=== PATIENT | female | born 1955 | race African-American/Black ===

== ENCOUNTER 2020-10-22 17:29 | Observation (INO) ==
[2020-10-22 17:58] LABS: Basophils # 0.1 10*3/uL (0.0-0.2); Basophils % 0.7 % (0.0-0.8); Eosinophils # 0.3 10*3/uL (0.0-0.87); Eosinophils % 4.1 % (0.00-10.9); Hemoglobin 13.3 GM/DL (12.0-16.0); Immature Granulocytes % 0.3 %; Immature Granulocytes Absolute 0.02 #; Lymphocytes # 1.9 10*3/uL (1.4-4.0); Lymphocytes % 27.6 % (21.3-54.2); Mean Corpuscular HGB Conc 33.3 GM/DL (32-36); Mean Corpuscular Volume 97.8 FL (87-102); Mean Platelet Volume 9.3 FL (9.6-12.0); Monocytes % 8.8 % (1.7-12.7); Neutrophils % 58.5 % (38.7-73.9); Platelet Count 186 T/CUMM (130-400); Red Blood Count 4.09 MC/CUMM (3.8-5.5); Red Cell Distribution Width 15.8 % (9.3-17.3); White Blood Count 6.8 T/CUMM (4-12)
[2020-10-22 18:09] LABS: INR 3.2; PT Patient Result 32.9 SECS (10.5-12.0); Partial Thromboplastin Time 43.9 SECS (23.9-33.8)
[2020-10-22 18:26] LABS: Bilirubin,Total 0.6 MG/DL (0.20-1.00); Calcium 9.4 MG/DL (8.5-10.1); Osmolality,Calculated 276.4 MOS/KG (273-304); Potassium 3.8 MMOL/L (3.5-5.1); Total Protein 8.7 G/DL (6.4-8.2)
[2020-10-23] MEDS ORDERED: GLUCAGON 1 MG VIAL IM PRN (00:45)
[2020-10-23] MEDS ORDERED: ACETAMINOPHEN 325 MG TABLET PO PRN (00:45)
[2020-10-23] MEDS ORDERED: DEXTROSE 50% 25 GM/50 ML VIAL IV PRN (00:45)
[2020-10-23] MEDS ORDERED: ONDANSETRON 4 MG/2 ML VIAL IV PRN (00:45)
[2020-10-23] MEDS ORDERED: traZODone 50 MG TABLET PO PRN (00:45)
[2020-10-23] MEDS ORDERED: SIMETHICONE CHEW 125 MG TABLET PO PRN (00:45)
[2020-10-23 01:35] LABS: Basophils % 0.6 % (0.0-0.8); Eosinophils # 0.2 10*3/uL (0.0-0.87); Eosinophils % 4.5 % (0.00-10.9); Hematocrit 35.4 VOL% (35.7-47.0); Hemoglobin 11.8 GM/DL (12.0-16.0); Immature Granulocytes % 0.2 %; Immature Granulocytes Absolute 0.01 #; Lymphocytes # 1.3 10*3/uL (1.4-4.0); Lymphocytes % 26.1 % (21.3-54.2); Mean Corpuscular HGB Conc 33.3 GM/DL (32-36); Mean Corpuscular Volume 98.1 FL (87-102); Mean Platelet Volume 9.6 FL (9.6-12.0); Monocytes % 9.2 % (1.7-12.7); Neutrophils % 59.4 % (38.7-73.9); Platelet Count 166 T/CUMM (130-400); Red Blood Count 3.61 MC/CUMM (3.8-5.5); Red Cell Distribution Width 15.6 % (9.3-17.3); White Blood Count 5.1 T/CUMM (4-12)
[2020-10-23 01:58] LABS: Osmolality,Calculated 278.3 MOS/KG (273-304); Potassium 3.7 MMOL/L (3.5-5.1); Risk Ratio 2.68; Thyroid Stimulating Hormone 1.03 uIU/ml (0.358-3.74); VLDL Cholesterol 11.8 MG/DL
[2020-10-23] MEDS ORDERED: MAGNESIUM SULF RIDER 2 GM/50 ML PREMIX IV ONE (07:24)
[2020-10-23] MEDS ORDERED: ASCORBIC ACID 500 MG TABLET PO SCH (09:00)
[2020-10-23] MEDS ORDERED: PANTOPRAZOLE 40 MG TABLET PO SCH (09:00)
[2020-10-23] MEDS: CHOLECALCIFEROL 1,000 UNIT TABLET PO SCH (09:39)
[2020-10-23] MEDS: carvediloL 25 MG TABLET PO SCH ×2 (09:39→16:53)
[2020-10-23] MEDS: methIMAzole 5 MG TABLET PO SCH (09:40)
[2020-10-23] MEDS: ASCORBIC ACID 500 MG TABLET PO SCH ×2 (09:44→21:11)
[2020-10-23] MEDS: PANTOPRAZOLE 40 MG TABLET PO SCH ×2 (09:44→21:10)
[2020-10-23] MEDS: MULTIVITAMIN (CENTRUM) TABLET PO SCH (09:45)
[2020-10-23] MEDS: LORATADINE 10 MG TABLET PO SCH (09:45)
[2020-10-23] MEDS: lisinopriL 5 MG TABLET PO SCH (09:45)
[2020-10-23] MEDS: DOCUSATE SODIUM 100 MG CAPSULE PO SCH ×2 (09:46→21:10)
[2020-10-23] MEDS: ZINC GLUCONATE 50 MG TABLET PO SCH (09:46)
[2020-10-23] MEDS: SPIRONOLACTONE 25 MG TABLET PO SCH (09:50)
[2020-10-23] MEDS ORDERED: WARFARIN 1 MG TABLET PO SCH (18:00)
[2020-10-23] MEDS ORDERED: WARFARIN 3 MG TABLET PO SCH (18:00)
[2020-10-23] MEDS ORDERED: SPIRONOLACTONE 25 MG TABLET PO SCH (21:00)
[2020-10-23] MEDS ORDERED: SIMVASTATIN 10 MG TABLET PO SCH (21:00)
[2020-10-24] MEDS: CHOLECALCIFEROL 1,000 UNIT TABLET PO SCH (08:43)
[2020-10-24] MEDS: MULTIVITAMIN (CENTRUM) TABLET PO SCH (08:43)
[2020-10-24] MEDS: SPIRONOLACTONE 25 MG TABLET PO SCH (08:44)
[2020-10-24] MEDS: LORATADINE 10 MG TABLET PO SCH (08:44)
[2020-10-24] MEDS: PANTOPRAZOLE 40 MG TABLET PO SCH (08:44)
[2020-10-24] MEDS: methIMAzole 5 MG TABLET PO SCH (08:44)
[2020-10-24] MEDS: ASCORBIC ACID 500 MG TABLET PO SCH (08:44)
[2020-10-24] MEDS: ZINC GLUCONATE 50 MG TABLET PO SCH (08:44)
[2020-10-24] MEDS: carvediloL 25 MG TABLET PO SCH (08:44)
[2020-10-24] MEDS: DOCUSATE SODIUM 100 MG CAPSULE PO SCH (08:44)
[2020-10-24] MEDS: lisinopriL 5 MG TABLET PO SCH (08:47)
[2020-10-24 16:52] VITALS: BP 117/73
== END 2020-10-24 16:56 | disposition home or self-care (01) ==
LOC: N.EDINP 17:29 → N.ED 17:29 → N.TELEN 22:55
PROVIDERS: ADMIT Internal Medicine; ATTEND Internal Medicine

== ENCOUNTER 2021-11-26 11:52 | Inpatient (IN) ==
[2021-11-26] MEDS ORDERED: ASPIRIN 325 MG TABLET PO STA (12:15)
[2021-11-26 12:35] LABS: Basophils % 0.3 % (0.0-0.8); Eosinophils # 0.3 10*3/uL (0.0-0.87); Eosinophils % 3.3 % (0.00-10.9); Hematocrit 44.1 VOL% (35.7-47.0); Hemoglobin 14.5 GM/DL (12.0-16.0); Immature Granulocytes % 0.6 %; Immature Granulocytes Absolute 0.06 #; Lymphocytes # 1.8 10*3/uL (1.4-4.0); Lymphocytes % 18.4 % (21.3-54.2); Mean Corpuscular HGB Conc 32.9 GM/DL (32-36); Mean Platelet Volume 9.6 FL (9.6-12.0); Monocytes # 0.7 10*3/uL (0.11-0.8); Monocytes % 7.2 % (1.7-12.7); Neutrophils % 70.2 % (38.7-73.9); Platelet Count 191 T/CUMM (130-400); Red Blood Count 4.28 MC/CUMM (3.8-5.5); Red Cell Distribution Width 14.7 % (9.3-17.3); White Blood Count 9.7 T/CUMM (4-12)
[2021-11-26 12:46] LABS: INR 2.8; PT Patient Result 29.2 SECS (10.1-12.1)
[2021-11-26 12:57] LABS: Albumin 3.7 G/DL (3.4-5.0); Bilirubin,Total 0.8 MG/DL (0.20-1.00); Calcium 9.3 MG/DL (8.5-10.1); Osmolality,Calculated 279.5 MOS/KG (273-304); Total Protein 7.6 G/DL (6.4-8.2)
[2021-11-26] MEDS ORDERED: DOCUSATE SODIUM 100 MG CAPSULE PO PRN (13:10)
[2021-11-26] MEDS ORDERED: diphenhydrAMINE CAP 25 MG CAPSULE PO PRN (13:10)
[2021-11-26] MEDS ORDERED: ACETAMINOPHEN 325 MG TABLET PO PRN (13:10)
[2021-11-26] MEDS ORDERED: ALUMINUM/MAGNES/SIMETH MAX STR 30 ML UDCUP PO PRN (13:10)
[2021-11-26] MEDS ORDERED: PROMETHAZINE 25 MG TABLET PO PRN (13:10)
[2021-11-26] MEDS ORDERED: ONDANSETRON 4 MG/2 ML VIAL IV PRN (13:10)
[2021-11-26] MEDS ORDERED: MORPHINE 2 MG/1 ML SYRINGE IV PRN (13:10)
[2021-11-26] MEDS ORDERED: guaiFENesin/DM ER 600-30 MG TABLET PO PRN (13:10)
[2021-11-26] MEDS ORDERED: ZALEPLON 5 MG CAPSULE PO PRN (13:10)
[2021-11-26] MEDS ORDERED: SODIUM CHLORIDE 0.9% 1,000 ML IV STA (13:16)
[2021-11-26] MEDS: SODIUM CHLORIDE 0.9% 1,000 ML IV SCH ×3 (14:06→23:45)
[2021-11-26] MEDS ORDERED: HEPARIN 5,000 UNIT/1 ML VIAL IV STA (14:20)
[2021-11-26] MEDS ORDERED: HEPARIN 5,000 UNIT/1 ML VIAL ONE (14:20)
[2021-11-26] MEDS ORDERED: NITROGLYCERIN DRIP 50 MG/250 ML BOTTLE IV ONE (14:22)
[2021-11-26] MEDS ORDERED: HEPARIN/NACL 0.9% 2 UNITS/ML 2,000 UNIT/1,000 ML BAG IV ONE (14:22)
[2021-11-26] MEDS ORDERED: VERAPAMIL 5 MG/2 ML VIAL ONE (14:22)
[2021-11-26] MEDS ORDERED: diphenhydrAMINE CAP 50 MG CAPSULE PO ONE (14:28)
[2021-11-26] MEDS ORDERED: POTASSIUM CHLORIDE RIDER 10 MEQ/100 ML PREMIX IV PRN (14:28)
[2021-11-26] MEDS ORDERED: MAGNESIUM SULF RIDER 2 GM/50 ML PREMIX IV PRN (14:28)
[2021-11-26] MEDS ORDERED: DIAZEPAM 5 MG TABLET PO ONE (14:28)
[2021-11-26] MEDS ORDERED: DOPamine 800 MG/250 ML PREMIX IV ONE (15:26)
[2021-11-26] MEDS: DOPamine 800 MG/250 ML PREMIX IV PRN (15:41)
[2021-11-26] MEDS ORDERED: ATROPINE 1 MG/10 ML SYRINGE ONE (16:42)
[2021-11-26] MEDS ORDERED: ATROPINE 1 MG/10 ML SYRINGE IV ONE (16:42)
[2021-11-26 17:04] VITALS: BP 80/67
[2021-11-26 18:03] LABS: CKMB % 6.38 %
[2021-11-26 18:06] LABS: High Sensitive Troponin I* 864.1 ng/L (0-54)
[2021-11-26 18:33] LABS: Arterial Bicarbonate iSTAT 23.1 MMOL/L (20-26); Arterial pH iSTAT 7.338 (7.35-7.45)
[2021-11-26] MEDS ORDERED: ATROPINE 1 MG/10 ML SYRINGE IV PRN (19:22)
[2021-11-26 19:32] LABS: CKMB % 9.8 %
[2021-11-26 19:35] LABS: High Sensitive Troponin I* 1964.2 ng/L (0-54)
[2021-11-26] MEDS: SIMVASTATIN 10 MG TABLET PO SCH (20:28)
[2021-11-26] MEDS ORDERED: WARFARIN 1 MG TABLET PO SCH (21:00)
[2021-11-26] MEDS ORDERED: WARFARIN 3 MG TABLET PO SCH (21:00)
[2021-11-26 22:12] LABS: Basophils % 0.2 % (0.0-0.8); Eosinophils % 0.1 % (0.00-10.9); Hematocrit 42.3 VOL% (35.7-47.0); Hemoglobin 13.7 GM/DL (12.0-16.0); Immature Granulocytes % 1.3 %; Immature Granulocytes Absolute 0.15 #; Lymphocytes # 1.7 10*3/uL (1.4-4.0); Lymphocytes % 14.3 % (21.3-54.2); Mean Corpuscular HGB Conc 32.4 GM/DL (32-36); Mean Corpuscular Volume 106.5 FL (87-102); Mean Platelet Volume 9.4 FL (9.6-12.0); Monocytes # 0.3 10*3/uL (0.11-0.8); Monocytes % 2.2 % (1.7-12.7); Neutrophils % 81.9 % (38.7-73.9); Platelet Count 173 T/CUMM (130-400); Red Blood Count 3.97 MC/CUMM (3.8-5.5); Red Cell Distribution Width 14.9 % (9.3-17.3); White Blood Count 11.7 T/CUMM (4-12)
[2021-11-26 22:36] LABS: Albumin 2.8 G/DL (3.4-5.0); Bilirubin,Total 0.6 MG/DL (0.20-1.00); Calcium 8.6 MG/DL (8.5-10.1); Osmolality,Calculated 289.3 MOS/KG (273-304); Potassium 2.9 MMOL/L (3.5-5.1); Total Protein 7.3 G/DL (6.4-8.2)
[2021-11-26] MEDS ORDERED: SODIUM CHLORIDE 0.9% 500 ML IV ONE (22:53)
[2021-11-26] MEDS ORDERED: POTASSIUM CHLORIDE 20 MEQ TABLET PO ONE (22:53)
[2021-11-26] MEDS: POTASSIUM CHLORIDE RIDER 10 MEQ/100 ML PREMIX IV SCH (23:16)
[2021-11-27] MEDS: POTASSIUM CHLORIDE RIDER 10 MEQ/100 ML PREMIX IV SCH (00:21)
[2021-11-27 04:11] LABS: Basophils % 0.2 % (0.0-0.8); Eosinophils % 0.1 % (0.00-10.9); Hematocrit 48.6 VOL% (35.7-47.0); Hemoglobin 15.7 GM/DL (12.0-16.0); Immature Granulocytes % 1.4 %; Immature Granulocytes Absolute 0.19 #; Lymphocytes # 1.2 10*3/uL (1.4-4.0); Lymphocytes % 8.6 % (21.3-54.2); Mean Corpuscular HGB Conc 32.3 GM/DL (32-36); Mean Corpuscular Volume 106.6 FL (87-102); Mean Platelet Volume 9.4 FL (9.6-12.0); Neutrophils % 82.7 % (38.7-73.9); Platelet Count 160 T/CUMM (130-400); Red Blood Count 4.56 MC/CUMM (3.8-5.5); Red Cell Distribution Width 15.1 % (9.3-17.3)
[2021-11-27 04:53] LABS: Alanine Aminotransferase 79 U/L (13-56); Albumin 3.1 G/DL (3.4-5.0); Alkaline Phosphatase 118 U/L (45-117); Aspartate Amino Transferase 181 U/L (0-37); Blood Urea Nitrogen 14 MG/DL (7-18); Carbon Dioxide 14 MMOL/L (21-32); Chloride 110 MMOL/L (98-107); Cholesterol 136 MG/DL (50-200); Glucose 138 MG/DL (74-106); HDL Cholesterol 54 MG/DL (40-60); Potassium 4.5 MMOL/L (3.5-5.1); Risk Ratio 2.52; Sodium 136 MMOL/L (136-145); Thyroid Stimulating Hormone 0.769 uIU/ml (0.358-3.74); Total Protein 7.9 G/DL (6.4-8.2); Triglycerides 86 MG/DL (2-150); VLDL Cholesterol 17.2 MG/DL
[2021-11-27] MEDS ORDERED: HEPARIN DRIP 25,000 UNITS/500 ML PREMIX IV SCH (07:30)
[2021-11-27] MEDS: DOPamine 800 MG/250 ML PREMIX IV PRN ×2 (08:00→22:36)
[2021-11-27 08:31] LABS: Bilirubin,Total 0.7 MG/DL (0.20-1.00); Calcium 8.7 MG/DL (8.5-10.1); Osmolality,Calculated 284.3 MOS/KG (273-304); Potassium 5.5 MMOL/L (3.5-5.1); Total Protein 7.3 G/DL (6.4-8.2)
[2021-11-27 08:39] LABS: Arterial Base Excess iSTAT -8 MMOL/L (-2.5-2.5); Arterial Bicarbonate iSTAT 17.1 MMOL/L (20-26); Arterial O2 Saturation iSTAT 94 % (95-100); Arterial PCO2 iSTAT 34 MM HG (35-48); Arterial PO2 iSTAT 76 MM HG (80-95); Arterial Total CO2 iSTAT 18 MMO/L (23-27); Arterial pH iSTAT 7.317 (7.35-7.45)
[2021-11-27] MEDS ORDERED: SODIUM CHLORIDE 0.9% 1,000 ML IV SCH (09:00)
[2021-11-27] MEDS: ASPIRIN EC 81 MG TABLET PO SCH (09:57)
[2021-11-27] MEDS: methIMAzole 5 MG TABLET PO SCH (09:57)
[2021-11-27] MEDS: CHOLECALCIFEROL 1,000 UNIT TABLET PO SCH (09:57)
[2021-11-27] MEDS: MULTIVITAMIN (CENTRUM) TABLET PO SCH (09:57)
[2021-11-27] MEDS: ASCORBIC ACID 500 MG TABLET PO SCH (09:57)
[2021-11-27] MEDS: CLOPIDOGREL 75 MG TABLET PO SCH (09:57)
[2021-11-27] MEDS: PANTOPRAZOLE 40 MG TABLET PO SCH (09:57)
[2021-11-27] MEDS: LORATADINE 10 MG TABLET PO SCH (09:57)
[2021-11-27] MEDS: ZINC GLUCONATE 50 MG TABLET PO SCH (09:57)
[2021-11-27] MEDS: SODIUM CHLORIDE 0.9% 1,000 ML IV SCH ×2 (09:58→13:32)
[2021-11-27 13:34] LABS: Albumin 3.2 G/DL (3.4-5.0); Bilirubin,Total 0.6 MG/DL (0.20-1.00); Calcium 8.6 MG/DL (8.5-10.1); Osmolality,Calculated 285.3 MOS/KG (273-304); Potassium 5.2 MMOL/L (3.5-5.1); Total Protein 7.4 G/DL (6.4-8.2)
[2021-11-27 15:17] LABS: Calcium 8.8 MG/DL (8.5-10.1); Osmolality,Calculated 284.3 MOS/KG (273-304); Potassium 5.6 MMOL/L (3.5-5.1)
[2021-11-27] MEDS ORDERED: ALPRAZolam 0.5 MG TABLET PO ONE (15:51)
[2021-11-27 17:06] LABS: Barbiturates Screen,Urine Negative (Negative); Benzodiazepines Screen,Urine Negative (Negative); Cannabinoid Screen,Urine Positive (Negative); Opiate Screen,Urine Positive (Negative); Phencyclidine Screen,Urine Negative (Negative)
[2021-11-27] MEDS ORDERED: SODIUM BICARBONATE 50 MEQ/50 ML VIAL IV ONE (17:17)
[2021-11-27] MEDS ORDERED: WARFARIN 3 MG TABLET PO SCH (18:00)
[2021-11-27] MEDS ORDERED: WARFARIN 1 MG TABLET PO SCH (18:00)
[2021-11-27] MEDS: SODIUM BICARB INJ 100 MEQ in STERILE WATER INJ 1,000 ML IV SCH (19:48)
[2021-11-27] MEDS: SIMVASTATIN 10 MG TABLET PO SCH (20:57)
[2021-11-28] MEDS: SODIUM BICARB INJ 100 MEQ in STERILE WATER INJ 1,000 ML IV SCH ×3 (01:25→22:18)
[2021-11-28 06:14] LABS: Basophils % 0.3 % (0.0-0.8); Eosinophils % 0.1 % (0.00-10.9); Hematocrit 46.2 VOL% (35.7-47.0); Hemoglobin 14.2 GM/DL (12.0-16.0); Immature Granulocytes % 0.5 %; Immature Granulocytes Absolute 0.08 #; Lymphocytes # 1.6 10*3/uL (1.4-4.0); Lymphocytes % 9.7 % (21.3-54.2); Mean Corpuscular HGB Conc 30.7 GM/DL (32-36); Mean Corpuscular Volume 112.1 FL (87-102); Mean Platelet Volume 9.7 FL (9.6-12.0); Monocytes # 1.7 10*3/uL (0.11-0.8); Monocytes % 10.8 % (1.7-12.7); Neutrophils % 78.6 % (38.7-73.9); Platelet Count 159 T/CUMM (130-400); Red Blood Count 4.12 MC/CUMM (3.8-5.5); Red Cell Distribution Width 15.3 % (9.3-17.3)
[2021-11-28 07:17] LABS: Bilirubin,Total 0.5 MG/DL (0.20-1.00); Calcium 8.4 MG/DL (8.5-10.1); Total Protein 6.6 G/DL (6.4-8.2)
[2021-11-28 08:06] LABS: Folate 20.72 NG/ML (5.38-24.0)
[2021-11-28] MEDS: MULTIVITAMIN (CENTRUM) TABLET PO SCH (08:54)
[2021-11-28] MEDS: ASPIRIN EC 81 MG TABLET PO SCH (08:54)
[2021-11-28] MEDS: ZINC GLUCONATE 50 MG TABLET PO SCH (08:54)
[2021-11-28] MEDS: CLOPIDOGREL 75 MG TABLET PO SCH (08:54)
[2021-11-28] MEDS: PANTOPRAZOLE 40 MG TABLET PO SCH (08:54)
[2021-11-28] MEDS: methIMAzole 5 MG TABLET PO SCH (08:55)
[2021-11-28] MEDS: CHOLECALCIFEROL 1,000 UNIT TABLET PO SCH (08:55)
[2021-11-28] MEDS: ASCORBIC ACID 500 MG TABLET PO SCH (08:55)
[2021-11-28] MEDS: LORATADINE 10 MG TABLET PO SCH (08:55)
[2021-11-28 09:53] LABS: Arterial Base Excess iSTAT -1 MMOL/L (-2.5-2.5); Arterial Bicarbonate iSTAT 22.7 MMOL/L (20-26); Arterial O2 Saturation iSTAT 99 % (95-100); Arterial PCO2 iSTAT 36 MM HG (35-48); Arterial PO2 iSTAT 118 MM HG (80-95); Arterial Total CO2 iSTAT 24 MMO/L (23-27); Arterial pH iSTAT 7.408 (7.35-7.45)
[2021-11-28 11:51] LABS: CKMB % 6.93 %
[2021-11-28 11:53] LABS: High Sensitive Troponin I* 33182.1 ng/L (0-54)
[2021-11-28] MEDS ORDERED: NOREPINEPHRINE 8 MG in SODIUM CHLORIDE 0.9% 242 ML IV PRN (12:30)
[2021-11-28 13:19] LABS: PT Patient Result 96.5 SECS (10.1-12.1)
[2021-11-28] MEDS ORDERED: HEPARIN DRIP 25,000 UNITS/500 ML PREMIX IV SCH (13:30)
[2021-11-28 14:15] LABS: INR 10.3
[2021-11-28] MEDS: DOPamine 800 MG/250 ML PREMIX IV PRN (16:00)
[2021-11-28] MEDS ORDERED: WARFARIN 3 MG TABLET PO SCH (18:00)
[2021-11-28] MEDS ORDERED: WARFARIN 1 MG TABLET PO SCH (18:00)
[2021-11-28] MEDS ORDERED: VECURONIUM 10 MG VIAL IV ONE ×2 (19:19→19:26)
[2021-11-28] MEDS ORDERED: ETOMIDATE 20 MG/10 ML VIAL IV ONE ×2 (19:19→19:26)
[2021-11-28] MEDS ORDERED: MIDAZOLAM 100 MG in SODIUM CHLORIDE 0.9% 80 ML IV PRN (19:26)
[2021-11-28] MEDS ORDERED: NOREPINEPHRINE 4 MG/4 ML VIAL IV ONE (19:28)
[2021-11-28] MEDS ORDERED: MIDAZOLAM 10 MG/2 ML VIAL ONE (19:44)
[2021-11-28] MEDS ORDERED: MIDAZOLAM 2 MG/2 ML VIAL IV ONE (19:51)
[2021-11-28 20:32] LABS: Arterial Base Excess iSTAT 2 MMOL/L (-2.5-2.5); Arterial Bicarbonate iSTAT 27.4 MMOL/L (20-26); Arterial O2 Saturation iSTAT 96 % (95-100); Arterial PCO2 iSTAT 45 MM HG (35-48); Arterial PO2 iSTAT 82 MM HG (80-95); Arterial Total CO2 iSTAT 29 MMO/L (23-27); Arterial pH iSTAT 7.392 (7.35-7.45)
[2021-11-28 20:55] LABS: PT Patient Result 90.1 SECS (10.1-12.1); Partial Thromboplastin Time 46.5 SECS (23.7-32.9)
[2021-11-28 21:19] LABS: INR 9.6
== END 2021-11-28 21:45 | disposition hospice, home (50) | DRG 280 ==
LOC: N.ED 11:52 → N.ICU 14:28 → N.EDINP 15:14 → N.ICU 16:45
PROVIDERS: ADMIT Internal Medicine Cardiovascular Disease; ATTEND Internal Medicine Cardiovascular Disease